=== PATIENT | male | born 1985 | race Caucasian/White ===

== ENCOUNTER 2023-09-22 20:08 | Emergency (ER) | payer BC, SELFPAY ==
[2023-09-22 20:12] VITALS: BP 167/93; PULSE 100; RESP 14; TEMP 37.1; O2SAT 100
[2023-09-22] MEDS: TETANUS,DIPHTHERIA,AC PERTUSSIS ADULT (0.5 ML) BOOSTRIX IM (20:29)
[2023-09-22] MEDS: AMOXICILLIN/CLAVULANATE K 875-125 MG TAB 1 TABLET PO (21:00)
--- NOTE | 2023-09-22 21:28 | ED.ANIMALBIT ---
HPI - Animal Bite General Chief Complaint: Animal Bite Stated Complaint: dog bite Time Seen by Provider: 09/22/23 20:17 History of Present Illness HPI narrative: This is a 37-year-old male, with no significant past medical history presenting to the emergency department after his dog bit his face. The patient states he was sleeping with his dog, who has night terrors, with a dog low Ki became startled and accidentally bit him. He states his dog is fully vaccinated and has otherwise appeared normal. He is not sure of his last tetanus vaccination. Related Data Allergies Allergy/AdvReac Type Severity Reaction Status Date / Time No Known Allergies Allergy Verified 09/22/23 20:09 Review of Systems Review of Systems: CONSTITUTIONAL: Denies fever, chills, or sweats. CARDIOVASCULAR: Denies chest pain, palpitations, or edema. RESPIRATORY: Denies cough or dyspnea. GASTROINTESTINAL: Denies abdominal pain, nausea, vomiting, or diarrhea. GENITOURINARY: Denies dysuria or hematuria. SKIN: Laceration of lip and face Denies rash or itching. MUSCULOSKELETAL: Denies back pain, joint pain, or myalgia. NEUROLOGIC: Denies headache, numbness, dizziness, or weakness. PSYCHIATRIC: Denies anxiety or depression. PMFSH Past Medical History Medical History (Updated 09/23/23 @ 00:02 by Rod Anthony) No significant past medical history Surgical History Surgical History (Updated 09/22/23 @ 21:35 by Blaine Pineda MD) No significant past surgical history Social History Social History (Updated 09/22/23 @ 21:35 by Blaine Pineda MD) Smoking status: Never smoker Alcohol intake: never Substance use: never Exam Narrative: GENERAL: Well-developed, well-nourished, and in no acute distress. HEAD: Normocephalic, a 3 cm linear laceration involving subcutaneous tissue is noted at the left lower lip, not crossing the vermilion border and not crossing the mucosa. A separate 3 cm linear superficial laceration is noted over the left cheek EYES: PERRLA and EOMI. ENT: Nares clear, no rhinorrhea or epistaxis. Mucous membranes moist. Oropharynx without tonsillar hypertrophy exudate or other lesions.CHEST: Clear to auscultation. No respiratory distress. No wheezes rales or rhonchi HEART: Regular rate and rhythm. No murmur heard. Normal peripheral pulses. SKIN: Lacerations as noted above. Skin otherwise warm, dry, no rash. NEURO: Alert and oriented x3. No focal deficit. Moving all 4 limbs spontaneously PSYCH: Normal mood and affect. Course Course Emergency Course: 21:27 - The patient was vaccinated for tetanus. Laceration of his lip was loosely approximated with sutures. Please see procedure note. Will give 1st dose of antibiotic and discharged with Augmentin. Discussed return and emergency precautions including signs/symptoms of wound infection. The patient voiced understanding and is comfortable with the plan. All questions answered to his satisfaction. Vital Signs Vital signs: Vital Signs Temperature 98.8 F 09/22/23 20:12 Pulse Rate 100 09/22/23 20:12 Respiratory Rate 14 09/22/23 20:12 Blood Pressure 167/93 H 09/22/23 20:12 Pulse Oximetry 100 09/22/23 20:12 Oxygen Delivery Room Air 09/22/23 20:12 Temperature 98.8 F 09/22/23 20:12 Pulse Rate 100 09/22/23 20:12 Respiratory Rate 14 09/22/23 20:12 Blood Pressure 167/93 H 09/22/23 20:12 Pulse Oximetry 100 09/22/23 20:12 Oxygen Delivery Room Air 09/22/23 20:12 Procedures Laceration Laceration 1: Date: 09/22/23 Time: 21:21 Site: face Side (If applicable): left Size (cm): 3 Description: linear Depth: simple, single layer Local Anesthetic: lidocaine 1% Amount of anesthesia used (mL): 7 Pre-repair: wound explored and irrigated ====== Skin Level ====== Skin layer closed with: nylon Size (cm): 6-0 Number of sutures: 2 Technique: s
== END 2023-09-22 21:39 | disposition home or self-care (01) ==
PROVIDERS: Emergency Provider Preventive Medicine Aerospace Medicine
DX: S01.551A Open bite of lip, initial encounter (principal); S01.452A Open bite of left cheek and temporomandibular area, initial encounter; Z23 Encounter for immunization; W54.0XXA Bitten by dog, initial encounter
CPT/HCPCS: 12013; 90471; 90715; 99283; A9270